=== PATIENT | female | born 1930 | race African-American/Black ===

== ENCOUNTER 2017-03-03 11:50 | Inpatient (IN) ==
[2017-03-03] MEDS ORDERED: ASPIRIN 325 MG TABLET PO STA (13:00)
--- NOTE | 2017-03-03 13:09 | EKG Report ---
Stationary ECG Study [facility] ER Test Date: 03/03/2017 12:13:41 PM Pat Name: YENNI RIGGS Department: Room: Gender: F Cook Starch: ACACIA Amos : 1930 Requested by: Bharath Garcia Order Number: [id number] Reading MD: GEMA SALINAS Intervals [place] Rate: 60 P: 175 OK: 174 QRS: 132 QRSD: 133 T: 66 QT: 471 QTc: 471 Interpretive Statements ELECTRONIC ATRIAL PACEMAKER MARKED RIGHT AXIS DEVIATION RIGHT BUNDLE BRANCH BLOCK Electronically Signed On 03-03-17 17:43:46 CDT by GEMA SALINAS [email or web address]
[2017-03-03] MEDS ORDERED: ASPIRIN 325 MG TABLET ONE (13:11)
[2017-03-03 13:17] LABS: Basophils # 0.1 10*3/uL (0.0-0.2); Basophils % 0.9 % (0.0-0.8); Eosinophils # 0.6 10*3/uL (0.0-0.87); Eosinophils % 7.1 % (0.00-10.9); Hematocrit 35.2 VOL% (35.7-47.0); Hemoglobin 11.1 GM/DL (12.0-16.0); Immature Granulocytes % 0.4 %; Immature Granulocytes Absolute 0.03 #; Lymphocytes # 1.2 10*3/uL (1.4-4.0); Lymphocytes % 14.3 % (21.3-54.2); Mean Corpuscular HGB Conc 31.5 GM/DL (32-36); Mean Corpuscular Hemoglobin 27 PG (27-34); Mean Corpuscular Volume 86.9 FL (87-102); Monocytes # 0.4 10*3/uL (0.11-0.8); Monocytes % 5.4 % (1.7-12.7); NRBC # 0.02 10*3/uL; Neutrophils # 5.8 10*3/uL (1.4-7.4); Neutrophils % 71.9 % (38.7-73.9); Platelet Count 135 T/CUMM (130-400); Red Blood Count 4.05 MC/CUMM (3.8-5.5); Red Cell Distribution Width 17.1 % (9.3-17.3)
[2017-03-03 13:22] LABS: INR 1.2; PT Patient Result 12.4 SECS; Partial Thromboplastin Time 26.6 SECS (0-40)
[2017-03-03 13:26] LABS: Albumin 3.5 G/DL (3.4-5.0); Bilirubin,Total 0.7 MG/DL (0.2-1.0); Calcium 9.2 MG/DL (8.5-10.1); Osmolality,Calculated 296.7 MOS/KG (273-304); Potassium 4.8 MMOL/L (3.5-5.1); Total Protein 7.2 G/DL (6.4-8.3)
--- NOTE | 2017-03-03 13:30 | XRay Report ---
Portable chest Date: 03/03/2017 Clinical history: Chest pain Comparison: 04/02/2014 Technique: Portable AP sitting chest Findings: The heart is minimally enlarged with stable left subclavian atrioventricular pacemaker. Reduced but recurrent diffuse parenchymal findings in the left mid to lower lung zone with small left pleural effusion. Minimal chronic scarring in the right lung. Decreased hilar density with degenerative changes. Postoperative findings in the axilla bilaterally. Impression: Possible recurrent pneumonia in the left mid to lower lung zone. It is difficult to exclude additional underlying pathology/masses with small left pleural effusion. Follow-up is recommended. Stable left subclavian atrioventricular permanent pacemaker. PROCEDURE INTERPRETED AT [facility] DEPARTMENT OF RADIOLOGY Final Report Signed by: Dr. Sarah Magallon
--- NOTE | 2017-03-03 13:39 | Emergency Department Note ---
Nini Bartlett Gwan, am scribing for, and in the presence of, Bharath Guadarrama MD 13:06 . Chiara Bartlett James D, MD, personally performed the services described in this documentation, ascribed by Bobo Terrazas in my presence, and it is both accurate and complete 338 . Arrival - Arrival Chief Complaint: Chest Pain Stated Complaint: shoulder and neck pain ED Nursing Triage Note: C/o midsternal chest pain radiating to right shoulder/ neck and SOB-onset last night. Mode of Arrival: Wheelchair Limitations: No Limitations Source: Patient, Family, Old Records Reviewed, RN Notes Reviewed - History of Present Illness HPI Narrative: Patient is a 87 y/o female, with a hx of pacemaker, who presents to the ED with a c/o midsternal chest pain and melena with an onset 3 days ago. Patient describes her pain as dull and that it radiates to right shoulder/neck. Her associated sxs have been SOB that worsens with movement and palpation. Family stated that pt was last seen in Dr. Noel office 02/25/2017 with negative results. Family continued to state that pt began to have sxs 3 days ago of "feeling sick, SOB and nausea. Family denies being on blood thinner or any fall/ trauma to her chest. Patient stated that she is not in pain now while in ED. Consistency: constant Severity: moderate Date of Last Menstrual Period: hysterectomy Allergies/Adverse Reactions: Allergies Allergy/AdvReac Type Severity Reaction Status Date / Time No Known Allergies Allergy Verified 03/03/17 12:04 Home Medications: Home Medications Medication Instructions Recorded Confirmed Type Atorvastatin Calcium 20 mg PO DAILY 03/03/17 03/03/17 History Escitalopram Oxalate 10 mg PO DAILY 03/03/17 03/03/17 History Ferrous Sulfate 325 mg PO DAILY 03/03/17 03/03/17 History Furosemide Tab [Lasix Tab] 40 mg PO BID DIURETIC 03/03/17 03/03/17 History Loratadine Tab [Claritin Tab] 10 mg PO DAILY 03/03/17 03/03/17 History Omeprazole 40 mg PO DAILY 03/03/17 03/03/17 History Sotalol HCl [Sotalol] 80 mg PO BID 03/03/17 03/03/17 History cloNIDine HCl [Clonidine HCl] 0.1 mg PO BID 03/03/17 03/03/17 History Review of System - Review of System 12 point system: reviewed and no additional remarkable complaints except as stated - Review of System Constitutional: Absent: chills, fever Eyes: Absent: discharge, pain Cardiovascular: Present: as per HPI, chest pain Gastrointestinal: Present: as per HPI, nausea, melena. Absent: abdominal pain Genitourinary female: Absent: dysuria Musculoskeletal: Absent: arm pain, back pain, leg pain Skin: Absent: rash, lesions Medical,Surgical,& Family Hx - Medical History Cardio: History of: Hypertension, Pacemaker Endocrine: History of: Dyslipidemia - Social History Smoking Status: Never smoker Frequency of Alcohol Use: None Type of Drug Use: None Exam Physical Examination: GENERAL: This is a ill-appearing black female in no apparent distress. VITAL SIGNS: HEENT: Head is normocephalic and atraumatic. Pupils are equally round and reactive to light. Extraocular movement are intact. Oropharynx is benign with dry mucous membranes. NECK: Neck is soft and supple without tenderness. There are no masses. There is no lymphadenopathy. LUNGS: Lungs are clear to auscultation bilaterally. Chest rises symmetrically. There is no chest wall tenderness. CV: Heart is regular rate and rhythm with 2-3/6 systolic injection murmurs. ABDOMEN: Abdomen is soft, non-tender to palpation. There are no abnormal masses palpated. There is no organomegaly. Bowel sounds are present and active. SKIN: Skin is warm and dry. No rash. EXTREMITIES: Patient has full range of motion without tenderness. There is no pedal edema. NEUROLOGIC: Awake, alert, and oriented x4. Cranial nerves II through XII are grossly intact. There are no motorsensory deficits. PSYCHIATRIC: Normal affect. Normal mood. Vital Signs: Vital Signs Temperature 96.9 F L 03/03/17 11:59 Pulse Rate 60 03/03/17 11:59 Respiratory Rate 18 03/03/17 13:33 Blood Pressure 157/93 03/03/17 11:59 O2 Sat by Pulse Oximetry 95 03/03/17 11:59 Results - Labs CBC & BMP: 03/03/17 12:30 03/03/17 12:30 Lab Results: I have reviewed the patients labs Labs: Laboratory Tests 03/03/17 03/03/17 03/03/17 12:30 12:30 12:30 WBC 8.0 RBC 4.05 Hgb 11.1 L Hct 35.2 L MCV 86.9 L MCHC 31.5 L Lymph % (Auto) 14.3 L Baso % (Auto) 0.9 H Lymph # (Auto) 1.2 L INR 1.2 PT Patient/Control Mix 12.4 Circ Anticoag PTT 26.6 Sodium 138 Potassium 4.8 Chloride 106 Carbon Dioxide 21 Anion Gap 15.8 H BUN 42 H Creatinine 2.90 H Glucose 294 H AST 73 H ALT 63 H Alkaline Phosphatase 118 H Globulin 3.7 H Albumin/Globulin Ratio 0.9 L - EKG EKG results: interpreted by ERMD - Impressions EKG: Electronic atrial pacemaker rate of 60, right axis deviation, right bundle branch block. - Diagnostic Findings Procedure: Chest x-ray: report reviewed by me, image reviewed by me (Possible recurrent pneumonia in the left mid to lower lung zone. it is difficult to exclude additional underlying pathology/masses with small left pleural effusion. Follow-up is recommended. Stable left subclavian atrioventricular permanent pacemaker. ) Disposition Clinical Impression: Pneumonia Case discussed with: patient Disposition: Still a Patient Condition: Stable Time of Disposition: 14:22
[2017-03-03] MEDS ORDERED: LEVOFLOXACIN INJ 500 MG in PREMIX 1 EACH IV STA (14:23)
[2017-03-03] MEDS ORDERED: LEVOFLOXACIN INJ 100 ML IV ONE (14:31)
--- NOTE | 2017-03-03 15:22 | Hospitalist History & Physical ---
Assessment and Plan - Time spent with patient Time spent with patient: Greater than 30 minutes (1) Shortness of breath Status: Acute Assessment and plan: 87-year-old -[place] female with history of CHF, pacemaker, hypertension admitted by hospitalist service with shortness of breath due to pneumonia. Her x-ray is showing a questionable mass and small pleural effusion. We will go ahead and consult pulmonary for further evaluation of this. We will also put her on antibiotics, breathing treatments, and O2.. Patient is also complaining of diarrhea with dark stools but her guaiac was negative. We will continue to monitor this. Will restart all of her home medicines for CHF and hypertension. Patient's blood sugars were noted to be almost 300 but she is on nothing for diabetes. Will put her on sliding scale insulin and check hemoglobin A1c. Patient's creatinine is 2.9 but this is her baseline. Dr. Medrano will see and examined patient and further recommendations to follow. Current Visit: Yes (2) Diarrhea Status: Acute Current Visit: Yes (3) Pneumonia Status: Acute Current Visit: Yes (4) Pleural effusion Status: Acute Current Visit: Yes (5) Chronic kidney disease Status: Acute Current Visit: Yes (6) Congestive heart failure Status: Acute Current Visit: Yes (7) Hypertension Status: Acute Current Visit: Yes (8) Diabetes Status: Acute Current Visit: Yes History of Present Illness Chief complaint: Shortness of breath History of present illness: Ms. Engel is a 87 year old female with history of hypertension, chronic kidney disease, pacemaker, and congestive heart failure presenting to the ED with a one-week history of increasing shortness of breath and diarrhea. History obtained from patient and from daughter and [id number] in the room. Patient had just had an appointment with Dr. Noel on Tuesday where he added a new medicine of sotalol to her regimen. Otherwise everything looked fine. They state she started feeling bad after that. Patient complains of cough, weakness and shortness of breath along with abdominal cramping and diarrhea with dark stools. She denies headache, dysphagia, chest pain, constipation, or lower extremity edema. Patient is afebrile and her vital signs are stable. Patient's white count is normal and her H&H is stable. She had a guaiac negative stool. Her electrolytes are okay and her creatinine is 2.9 but this is her baseline. Her blood sugars are elevated at 294 and I do not see where she is on any medicines for diabetes. Her chest x-ray shows a possible recurrent pneumonia in the left mid to lower lung zone but it is difficult to exclude pathology/mass with small left pleural effusion. Dr. Noel is her home theater expert Dr. Snyder is her batt packer. Her PCP is Dr. Chang in [place]. Patient's case was discussed with Dr. Guadarrama the ED physician and Dr. Medrano the admitting hospitalist, it was agreed patient would be admitted for further evaluation and treatment. Home Medications Medication Instructions Recorded Confirmed Type Atorvastatin Calcium 20 mg PO DAILY 03/03/17 03/03/17 History Escitalopram Oxalate 10 mg PO DAILY 03/03/17 03/03/17 History Ferrous Sulfate 325 mg PO DAILY 03/03/17 03/03/17 History Furosemide Tab [Lasix Tab] 40 mg PO BID DIURETIC 03/03/17 03/03/17 History Loratadine Tab [Claritin Tab] 10 mg PO DAILY 03/03/17 03/03/17 History Omeprazole 40 mg PO DAILY 03/03/17 03/03/17 History Sotalol HCl [Sotalol] 80 mg PO BID 03/03/17 03/03/17 History cloNIDine HCl [Clonidine HCl] 0.1 mg PO BID 03/03/17 03/03/17 History Allergies Allergy/AdvReac Type Severity Reaction Status Date / Time No Known Allergies Allergy Verified 03/03/17 12:04 Medical,Surgical,& Family Hx - Medical History Cardio: History of: Hypertension, Pacemaker Endocrine: History of: Dyslipidemia - Surgical History Cardiac Surgeries: Sugical HX of: Vascular Access Devices Reproductive Surgeries: Surgical HX of;: Hysterectomy - Family History Family History: Reports;: Family Heart Disease - Social History Smoking Status: Never smoker Frequency of Alcohol Use: None Type of Drug Use: None Marital Status: Lives With:: Children Functional capacity: uses cane/walker Review of systems: A complete 10 system review of systems was obtained and pertinent positives and negatives per HPI Exam - Constitutional Exam: Constitutional System: No distress. No tremulousness. Head: Normocephalic, atraumatic. Ears, Nose and Throat System: No evidence of Otitis or Mastoiditis. No epistaxis or discharge Eyes System: Pupils equal, round, and reactive. Extraocular muscles intact. Neck: Supple, without adenopathy, No jugular venous distention. No thyromegaly, neck mass, or prior surgery apparent. Respiratory System: Chest decreased breath sounds on the left to auscultation. Cardiovascular System: Heart with regular rate and rhythm. 4/6 murmur. GI System: Abdomen soft, nontender. Normo active bowel sounds present. Musculoskeletal System: limbs with no pedal edema. Diminished distal pulses. Neurological System: No discernable sensory deficit. No aphasia Psychiatric System: Conversation is rational Results - Labs CBC & BMP: 03/03/17 12:30 03/03/17 12:30 Lab Results: I have reviewed the past 24 hour labs - Impressions Right bundle branch block, pacemaker - Diagnostic Findings Procedure: Chest x-ray: report reviewed by me (Possible recurrent pneumonia in the left mid to lower lung zone. It is difficult to exclude additional underlying pathology/masses with small left pleural effusion)
[2017-03-03] MEDS ORDERED: guaiFENesin/DM ER 600-30 MG TABLET PO PRN (15:30)
[2017-03-03] MEDS ORDERED: MORPHINE 2 MG/1 ML SYRINGE IV PRN (15:30)
[2017-03-03] MEDS ORDERED: PROMETHAZINE 25 MG TABLET PO PRN (15:30)
[2017-03-03] MEDS ORDERED: ACETAMINOPHEN 325 MG TABLET PO PRN (15:30)
[2017-03-03] MEDS ORDERED: DOCUSATE SODIUM 100 MG CAPSULE PO PRN (15:30)
[2017-03-03] MEDS ORDERED: ONDANSETRON 4 MG/2 ML VIAL IV PRN (15:30)
[2017-03-03] MEDS ORDERED: diphenhydrAMINE CAP 25 MG CAPSULE PO PRN (15:30)
[2017-03-03] MEDS ORDERED: GLUCAGON 1 MG VIAL IM PRN (15:33)
[2017-03-03] MEDS ORDERED: DEXTROSE 50% 25 GM/50 ML VIAL IV PRN (15:33)
[2017-03-03] MEDS ORDERED: ALBUTEROL 2.5 MG/3 ML NEB RESP TX PRN (15:34)
--- NOTE | 2017-03-03 16:13 | EKG Report ---
Stationary ECG Study [facility] Test Date: 03/03/2017 4:11:21 PM Pat Name: YENNI RIGGS Department: Room: 222 Gender: F Computer Hardware Engineer: : 1930 Requested by: Bharath Garcia Order Number: [id number] Reading MD: GEMA SALINAS Intervals [place] Rate: 59 P: 109 IN: 176 QRS: 135 QRSD: 144 T: 67 QT: 464 QTc: 464 Interpretive Statements ELECTRONIC ATRIAL PACEMAKER MARKED RIGHT AXIS DEVIATION RIGHT BUNDLE BRANCH BLOCK Electronically Signed On 03-03-17 17:50:03 CDT by GEMA SALINAS [id number]
[2017-03-03] MEDS: LORATADINE 10 MG TABLET PO SCH (17:20)
[2017-03-03] MEDS: SODIUM CHLORIDE 0.9% 1,000 ML IV SCH (17:20)
[2017-03-03] MEDS: PANTOPRAZOLE 40 MG TABLET PO SCH (17:20)
[2017-03-03] MEDS: ESCITALOPRAM 10 MG TABLET PO SCH (17:20)
[2017-03-03] MEDS: FERROUS SULFATE 325 MG TABLET PO SCH (17:20)
[2017-03-03] MEDS: FUROSEMIDE 40 MG TABLET PO SCH (17:20)
[2017-03-03] MEDS: ENOXAPARIN 30 MG/0.3 ML SYRINGE SUBCUT SCH (17:20)
[2017-03-03] MEDS: ATORVASTATIN 20 MG TABLET PO SCH (17:21)
[2017-03-03] MEDS: cefTRIAXone 1,000 MG in SODIUM CHLORIDE 0.9% 100 ML IV SCH (17:21)
[2017-03-03] MEDS: INSULIN REGULAR 100 UNIT/ML SUBCUT SCH (17:23)
--- NOTE | 2017-03-03 17:53 | Pulmonology Consult Note ---
History of Present Illness Chief complaint: Abnormal chest x-ray. Diarrhea History of present illness: Ms. Engel is a 87 year old black female whom I been asked see in pulmonary consultation for evaluation and treatment of abnormal chest x-ray. This patient is seen along with her daughter and Luis Antonio Chiu nurse practitioner. She has had a cough for 3 or 4 weeks and several weeks ago this was productive of a lot of discolored sputum. Now the cough is better. Patient 's had some shortness of breath. Her biggest complaint has been diarrhea. She has had some vague nausea but no vomiting. No one is seen any blood in her stools. Patient denies any chest pain. She has seen Dr. Oleksandr espinoza recently in cardiology consultation and it sounds like she may have had an echocardiogram. In March 2014 while the patient was in the hospital she had an echocardiogram and was said to have pulmonary hypertension. That is mentioned in the discharge summary. That record is not available on our electronic medical records. At that time she had moderate to severe mitral regurgitation and tricuspid regurgitation with elevated pulmonary artery pressures and she was in congestive heart failure. I have reviewed those x-rays. There were infiltrative changes in the mid and upper lung correia bilaterally. This could easily be atypical pulmonary edema. This admission the patient has a natruretic peptide of 2130. I am going to ask Dr. espinoza to help with the patient's evaluation and if he did not do an echocardiogram we probably should repeat it. Patient does have some very mild orthopnea. The remainder of the review of systems is negative. Allergies. None. Home medicines. See below Past history. Congestive heart failure. Mitral regurgitation which may have been the cause of pulmonary hypertension. Gastroesophageal reflux. Iron deficiency anemia. Hyperlipidemia. High blood pressure. Patient had breast cancer in the left breast in 1986. This was an adenocarcinoma which was stage II and was ER/UT negative. She had a left modified radical mastectomy and she was treated with adjuvant CMF, she received 9 courses the last one was 1987. 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 She underwent a mastectomy and was treated with adjuvant hormonal therapy for about 2 years and then it was stopped. Degenerative arthritis her breast cancer was treated by Dr. Gerardo Johns patient has a history of chronic renal failure which is followed and treated by Dr. Nicholas Osorio. History of intermittent lower extremity arterial claudication. 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 Family history. Her sister had Alzheimer's disease. Sister and a daughter had breast cancer. Her mother had diabetes mellitus and heart disease and at age 88 she had a CVA. Her father had a CVA at age 90. Mother had high blood pressure. Mother and father both have osteoarthritis mother father brother had strokes. Social history. Has been a smoker. Does not use alcohol. Chest x-ray. 03/03/2017. Heart size is normal. Right lung is clear. There is a masslike effect in the left upper lung field. This is a portable film only in this area is partially hidden by cardiac pacer. Inferior to the patient has an area that looks like pleural effusion and interstitial edema. This is compared to a film done 03/30/2014 when the patient had congestive heart failure. The left side of her chest x-ray looked almost exactly the same but there was atypical interstitial edema and pleural effusion in the right upper lung. A chest x-ray done 05/12/2011 showed no abnormalities. Review of Dr. Johns's notes showed that he read a chest x-ray in his office dated 2014 and this showed no mass-effect infiltrates or pulmonary edema. I think we have to assume that this is an infiltrate such as pneumonia but watch for atypical pulmonary edema. Lab. White count is 8000 with 72 segs and 14 lymphs. H&H 11.1/35.2 with decreased red blood cell indices and elevated red blood cell distribution with. Platelets are 135,000. Natruretic peptide is elevated at 2130. Alkaline phosphatase is minimally elevated 118. There is mild elevation of AST and ALT. Total bilirubin is 0.7. Protein albumin and globulins are normal. Electrolytes are normal. Creatinine is 2.9 with a BUN of 42. Glucoses are 294. Multiple old records have been reviewed. These include records from previous hospitalizations were available, from Dr. Gerardo Johns and from Dr. Najera. Physical exam. Vital signs. See below. Psychiatric. Oriented cooperative and has a sense of humor. Neurologic. Cranial nerves are intact. Patient moves all 4 extremities. She needs help to move around. Face. Symmetrical. Lips and tongue are normal. Neck. Symmetrical kyphotic. No masses. Thyroid was not palpated Lymphatics. No submandibular cervical supraclavicular adenopathy. Chest. Kyphotic. Wheeze free. Slight cough with forced expiration Heart. I cannot hear a definite murmur or gallop Breasts. Deferred Abdomen. Nontender. Bowel sounds are present. No organs were palpated. Lower extremities. Mild chronic venous stasis. Slight tenderness of both catheters with posterior pressure. Arterial exam. Carotid upstrokes are decreased. Upper extremity pulses are faintly palpable. Lower extremity pulses are nonpalpable. Venous exam. Vein to the neck and upper extremities are normal. There is mild chronic venous stasis of the lower extremities. The remainder the physical exam is noncontributory. Impression. 1. Probable left upper lung pneumonia. Watch for atypical pulmonary edema. See above x-ray interpretation. 2. History of heart disease and past history of congestive heart failure. 3. History of at least moderate mitral regurgitation with pulmonary hypertension and tricuspid regurgitation. 4. Chronic renal failure 5. Possible iron deficiency 6. High blood pressure 7. Hyperlipidemia 8. History of gastroesophageal reflux disease 9. Diabetes mellitus. Hemoglobin A1c is elevated at 7.9. Note the patient has taken no medicines for diabetes. 10. See past history Plan. 1. Agree with protocol antibiotics 2. Sputum for Gram stain culture and sensitivity 3. Cold agglutinins 4. Legionella titer 5. Inhalation therapy with DuoNeb's 4 times daily and as needed 6. Doppler venograms of lower extremities 7. Iron total iron-binding capacity 8. Follow-up chest x-ray, BMP and BNP. Note the patient was on Lasix at home. This is being held at the present time and she is receiving IV fluids. 9. Consult Dr. Oleksandr espinoza. He is done a recent cardiac evaluation and perhaps he can help us with the status of her mitral regurgitation, pulmonary hypertension, cardiac output. 10. See orders Home Medications Medication Instructions Recorded Confirmed Type Atorvastatin Calcium 20 mg PO DAILY 03/03/17 03/03/17 History Escitalopram Oxalate 10 mg PO DAILY 03/03/17 03/03/17 History Ferrous Sulfate 325 mg PO DAILY 03/03/17 03/03/17 History Furosemide Tab [Lasix Tab] 40 mg PO BID DIURETIC 03/03/17 03/03/17 History Loratadine Tab [Claritin Tab] 10 mg PO DAILY 03/03/17 03/03/17 History Omeprazole 40 mg PO DAILY 03/03/17 03/03/17 History Sotalol HCl [Sotalol] 80 mg PO BID 03/03/17 03/03/17 History cloNIDine HCl [Clonidine HCl] 0.1 mg PO BID 03/03/17 03/03/17 History Allergies Allergy/AdvReac Type Severity Reaction Status Date / Time No Known Allergies Allergy Verified 03/03/17 12:04 [facility] H&P - Constitutional Vitals: Period Temp Pulse Resp BP Sys/Dickinson Pulse Ox Last 24 Hr 97 F 60-60 16 159-165/77-86 94 Medical,Surgical,& Family Hx - Medical History Cardio: History of: Hypertension, Pacemaker Endocrine: History of: Diabetes Mellitus (NIDDM), Dyslipidemia - Surgical History Cardiac Surgeries: Sugical HX of: Vascular Access Devices Abdominal Surgeries: Surgical HX of: Appendectomy Reproductive Surgeries: Surgical HX of;: Breast Surgery, Hysterectomy - Family History Family History: Reports;: Family Heart Disease - Social History Smoking Status: Never smoker Frequency of Alcohol Use: None Type of Drug Use: None Results - Labs CBC & BMP: 03/03/17 12:30 03/03/17 12:30
[2017-03-03] MEDS ORDERED: ALBUTEROL/IPRATROPIUM 3 ML NEB RESP TX PRN (18:09)
[2017-03-03 18:59] LABS: Thyroid Stimulating Hormone 2.55 uIU/ml (0.358-3.74)
[2017-03-03] MEDS: ALBUTEROL/IPRATROPIUM 3 ML NEB RESP TX SCH (19:20)
[2017-03-03] MEDS: cloNIDine 0.1 MG TABLET PO SCH (21:29)
[2017-03-03] MEDS: SOTALOL 80 MG TABLET PO SCH (21:30)
[2017-03-04] MEDS: ALBUTEROL/IPRATROPIUM 3 ML NEB RESP TX SCH ×4 (00:36→19:30)
[2017-03-04 04:48] LABS: Basophils # 0.1 10*3/uL (0.0-0.2); Basophils % 1.2 % (0.0-0.8); Eosinophils # 0.6 10*3/uL (0.0-0.87); Eosinophils % 8.6 % (0.00-10.9); Hematocrit 31.9 VOL% (35.7-47.0); Immature Granulocytes % 0.3 %; Immature Granulocytes Absolute 0.02 #; Lymphocytes % 14.1 % (21.3-54.2); Mean Corpuscular HGB Conc 31.3 GM/DL (32-36); Mean Corpuscular Hemoglobin 27 PG (27-34); Mean Corpuscular Volume 87.2 FL (87-102); Mean Platelet Volume 13.1 FL (9.6-12.0); Monocytes # 0.4 10*3/uL (0.11-0.8); Monocytes % 6.3 % (1.7-12.7); NRBC # 0.03 10*3/uL; Neutrophils # 4.8 10*3/uL (1.4-7.4); Neutrophils % 69.5 % (38.7-73.9); Platelet Count 115 T/CUMM (130-400); Red Blood Count 3.66 MC/CUMM (3.8-5.5); White Blood Count 6.9 T/CUMM (4-12)
[2017-03-04 05:14] LABS: Platelet Estimate Normal
[2017-03-04 05:15] LABS: Burr Cells Few; Helmet Cells Few; Ovalocytes 2+; Schistocytes Few
[2017-03-04 05:29] LABS: % Iron Saturation 36.9 % (18-50)
[2017-03-04 05:34] LABS: Albumin 3.1 G/DL (3.4-5.0); Bilirubin,Total 0.7 MG/DL (0.2-1.0); Calcium 9.6 MG/DL (8.5-10.1); Magnesium 1.5 MG/DL (1.8-2.4); Potassium 4.7 MMOL/L (3.5-5.1); Total Protein 6.1 G/DL (6.4-8.3)
[2017-03-04] MEDS: SODIUM CHLORIDE 0.9% 1,000 ML IV SCH (06:31)
--- NOTE | 2017-03-04 07:41 | XRay Report ---
XR chest 2V Date: 03/04/2017 4:00 AM History: Shortness of breath, pneumonia, possible atypical CHF Comparison: 03/03/2017 Technique: PA and lateral chest Findings: Persistent cardiomegaly with left subclavian atrial ventricular permanent pacemaker. Reduction in the parenchymal findings in the left mid to lower lung zone. Persistent irregular density in the left midlung zone with smaller left pleural effusion. Postoperative findings in the axilla bilaterally. Impression: Persistent cardiomegaly with a left subclavian atrioventricular pacemaker. Minimally reduced parenchymal findings in the left mid-lower lung same with minimally smaller left pleural effusion. These findings could be related to pneumonia or atypical CHF. It is difficult to exclude underlying mass and follow-up chest x-ray is recommended. PROCEDURE INTERPRETED AT [facility] [place] DEPARTMENT OF RADIOLOGY Final Report Signed by: Dr. Sarah Magallon
--- NOTE | 2017-03-04 07:41 | Ultrasound Report ---
Exam: Bilateral lower extremity venous Doppler ultrasound Comparison: None Clinical history: Bilateral calf pain Technique: Duplex scan of the lower extremity veins using B-mode/grayscale scaled imaging and Doppler spectral analysis and color flow. Findings: Major venous structures of the lower extremities demonstrate a normal course and caliber. Normal color-flow study and spectral analysis. There is normal compression and augmentation of bilateral common femoral, superficial femoral and popliteal veins. The proximal bilateral greater saphenous veins appear to be patent. Impression: No evidence to suggest deep venous thrombosis within either lower extremity. Ultrasound images were captured and stored. PROCEDURE INTERPRETED AT [facility] DEPARTMENT OF RADIOLOGY Final Report Signed by: Dr. Sarah Magallon
--- NOTE | 2017-03-04 08:11 | Physician Query Form ---
CLICK EDIT DOCUMENT TO SELECT QUERY ANSWER --> OK --> SIGN Isha Barnett RN, CCDS Certified Clinical Lay Out Carpenter W) [phone] (f) [phone] [email or web address] PROVIDERS: Make your selection(s) from the choices in EACH section by typing an "x" and enter comments in the comment section. Please use your independent medical judgment in providing your response. This request does not imply that any particular answer is desired or expected. CLINICAL INDICATORS: (Providers should not edit this section) The medical record indicates that the patient was admitted with pneumonia, CHF, BNP of 2130# and the patient was given Lasix (PO). Please provide further specificity regarding CHF. ACUITY: ( ) Acute ( x) Chronic ( ) Acute on Chronic ( ) Clinically unable to determine TYPE: ( ) Systolic (HFrEF - heart failure with reduced systolic function/EF) ( ) Diastolic (HFpEF - heart failure with preserved systolic function/EF) ( ) Combined Systolic/Diastolic ( ) Other, please specify: ( x) Clinically unable to determine ( ) The patient does NOT have CHF COMMENTS: PLEASE ALSO DOCUMENT RESPONSE IN PROGRESS NOTES AND/OR DISCHARGE SUMMARY Use of terms such as suspected, likely, or probable (associated with a specific diagnosis that is being evaluated, monitored, or treated as if it exists) are acceptable and can be restated in the discharge summary if not ruled out. MTDD
--- NOTE | 2017-03-04 08:13 | Physician Query Form ---
CLICK EDIT DOCUMENT TO SELECT QUERY ANSWER --> OK --> SIGN Isha Barnett RN, CCDS Certified Clinical Plumbing Designer W) [phone] (f) [phone] [email or web address] PROVIDERS: Make your selection(s) from the choices in EACH section by typing an "x" and enter comments in the comment section. Please use your independent medical judgment in providing your response. This request does not imply that any particular answer is desired or expected. CLINICAL INDICATORS: (Providers should not edit this section) The medical record indicates that the patient was admitted with CHF, history CKD , GFR of 16# and the creatinine 2.90#. Clarify which of the following most accurately represents the patient's renal status: Chronic Kidney Disease Stages Source: National Kidney Disease Foundation ( ) Stage I (eGFR > or = 90) ( ) Stage II (eGFR 60 - 89) ( ) Stage III (eGFR 30 - 59) (x ) Stage IV (eGFR 15 - 29) ( ) Stage V (eGFR < 15 or dialysis) COMMENTS: PLEASE ALSO DOCUMENT RESPONSE IN PROGRESS NOTES AND/OR DISCHARGE SUMMARY Use of terms such as suspected, likely, or probable (associated with a specific diagnosis that is being evaluated, monitored, or treated as if it exists) are acceptable and can be restated in the discharge summary if not ruled out. MTDD
[2017-03-04] MEDS: LORATADINE 10 MG TABLET PO SCH (08:36)
[2017-03-04] MEDS: ATORVASTATIN 20 MG TABLET PO SCH (08:36)
[2017-03-04] MEDS: FUROSEMIDE 40 MG TABLET PO SCH ×2 (08:43→16:46)
[2017-03-04] MEDS: SOTALOL 80 MG TABLET PO SCH ×2 (08:43→20:24)
[2017-03-04] MEDS: FERROUS SULFATE 325 MG TABLET PO SCH (08:43)
[2017-03-04] MEDS: PANTOPRAZOLE 40 MG TABLET PO SCH (08:44)
[2017-03-04] MEDS: cloNIDine 0.1 MG TABLET PO SCH ×2 (08:44→20:24)
[2017-03-04] MEDS: INSULIN REGULAR 100 UNIT/ML SUBCUT SCH ×2 (08:44→16:47)
[2017-03-04] MEDS: ESCITALOPRAM 10 MG TABLET PO SCH (08:44)
--- NOTE | 2017-03-04 10:34 | Pulmonology Progress Note ---
Pulmonary - PN: Subj Interval history: This is a 87-year-old female patient whom I saw in pulmonary consultation 2016. My impressions were. 1. Probable left upper lung pneumonia. Watch for atypical pulmonary edema. See above x-ray interpretation. 2. History of heart disease and past history of congestive heart failure. 3. History of at least moderate mitral regurgitation with pulmonary hypertension and tricuspid regurgitation. 4. Chronic renal failure 5. Possible iron deficiency 6. High blood pressure 7. Hyperlipidemia 8. History of gastroesophageal reflux disease 9. Diabetes mellitus. Hemoglobin A1c is elevated at 7.9. Note the patient has taken no medicines for diabetes. 10. See past history 03/04/2017. Today's chest x-ray shows cardiomegaly pulmonary arteries are top normal right lung is clear. There is a dense mass or infiltrate in the anterior segment of the left upper lung. This is overlaid by a cardiac pacer. There is a small left-sided pleural effusion. I think we should treat this as if it is pneumonia for the present time. If this does not resolve this can be evaluated with fiberoptic bronchoscopy. I have ordered a new chest x-ray for Tuesday. I have discussed this possibility with her daughter. There are no results from microbiology. White blood cell count is 6900 with 69.5 segs and 14 lymphs. Electrolytes are normal. Creatinine is dropped from 2.90-2.50. Natruretic peptide remains elevated 2037. Thyroid function tests are normal. Cardiology consultation from Dr. espinoza is pending. I assumed that he recently did have an echocardiogram in his office on the patient. If not, we should order one. This patient has a history of at least moderate mitral regurgitation with pulmonary hypertension and tricuspid regurgitation. She has a history of heart disease and has had congestive heart failure in the past. In the past when diagnosed with congestive heart failure the pulmonary edema was atypical on her chest x-rays. Physical exam. Vital signs. See below Psychiatric. Oriented 3. Cooperative. Neurologic. Cranial nerves are intact. Long track motor functions intact. Patient has generalized weakness. Face. Symmetrical. Lips and tongue are normal. Edentulous. Neck. Symmetrical. No meningismus. Lymphatics. No submandibular cervical supraclavicular or epitrochlear adenopathy. Chest. Clear. Heart. Lateral PMI Abdomen. Positive bowel sounds Extremities. Nothing to suggest deep venous thrombophlebitis The remainder the physical exam is noncontributory. Plan. 1. Agree with protocol antibiotics 2. Sputum for Gram stain culture and sensitivity 3. Cold agglutinins 4. Legionella titer 5. Inhalation therapy with DuoNeb's 4 times daily and as needed 6. Doppler venograms of lower extremities. No evidence of deep venous trauma from 7. Iron total iron-binding capacity. Iron saturation is normal. 8. Follow-up chest x-ray, BMP and BNP. Note the patient was on Lasix at home. This is being held at the present time and she is receiving IV fluids. 9. Consult Dr. Oleksandr espinoza. He is done a recent cardiac evaluation and perhaps he can help us with the status of her mitral regurgitation, pulmonary hypertension, cardiac output. Note marked elevation of BNP 10. 03/04/2017. See today's note above. Chest x-ray on Tuesday. Treat as pneumonia and consider the possibility of a mass. Exam (Progress Note) - Constitutional Vitals: Period Temp Pulse Resp BP Sys/Dickinson Pulse Ox Last 24 Hr 96.6 F-97.3 F 58-62 16-21 124-165/64-86 94-100 Results - Labs CBC & BMP: 03/04/17 04:13 03/04/17 04:13
--- NOTE | 2017-03-04 10:38 | Cardiology Consult Note ---
History of Present Illness - Data of Consult Patient: known to practice within the last 3 years - Consult Narrative History of present illness: Cardiology consult 87-year-old woman presents with her daughter Iwona. She has had a nonproductive cough for at least 2 weeks denies fever or night sweats. Progressively short of breath and came to the ER for evaluation. Chest x-ray shows cardiomegaly and a small left effusion and infiltrate in the left midlung field. The BNP level is elevated at 2130. White count is 6.9. I believe this patient has pneumonia and superimposed CHF. Recent echo Doppler done December 06, 2016 showed an ejection fraction of 60% with grade 2 diastolic dysfunction and concentric LVH. The left atrium is severely dilated and there is moderate to severe 3+ mitral regurgitation. The right ventricle is dilated. There is severe tricuspid regurgitation. Calculated PAP was 80 mmHg. Carotid duplex study showed less than 40% bilateral ICA disease. The patient has sick sinus syndrome and status post dual-chamber pacemaker. She has a history of Paroxysmal atrial fibrillation and is on sotalol 80 mg twice daily. Her telemetry shows atrial pacing and her EKG shows right bundle branch block and left axis deviation which is unchanged from prior tracings. Patient is unsteady on her feet and holds onto her children at all times for gait support or uses a cane. She tires very easily. No history of stroke. The patient is a diabetic and uses a insulin pen. She cannot recall the name of the medication. She does have chronic arthritic complaints in her neck back and hands. She is a lifetime non-smoker and nondrinker. She does take atorvastatin for hyperlipidemia. She is status post Medtronic dual-chamber pacemaker 07/05/2010. She had a normal Lexiscan cardiac stress test March 05, 2010 with EF 62%. Lab data today White count 6.9 hemoglobin 10.0 hematocrit 31.9 MCV 87 Sodium 143 potassium 4.7 chloride 109 CO2 21 BUN 40 creatinine 2.50 Hemoglobin A1c of 7.9 glucose 160 BNP 2130 Blood pressure 148/80 pulse is 86 and regular aspirations 22 O2 sat 100% on 2 L Bilateral arcus. Nearly edentulous. Faint carotid bruit. Decreased breath sounds few rhonchi in the bases. Regular rhythm with 2/6 systolic murmur that radiates out to the apex. Abdomen obese soft benign. Femoral pulses 2+. Distal pulses are 1+. No leg edema Impression Left mid lung pneumonia Superimposed CHF Echo Doppler December 06, 2016 showed ejection fraction of 60% with grade 2 diastolic dysfunction with LVH. The left atrium is severely dilated there is moderate to severe 3+ MR and severe TR, PA pressure 80 mmHg Lifetime non-smoker Diabetic Chronic anemia Chronic renal failure. GE reflux Unsteady gait Chronic dyspnea Status post Medtronic dual-chamber pacemaker March 04, 2010 for sick sinus syndrome and paroxysmal atrial fib Atrial fib well-controlled on sotalol 80 mg twice daily Normal Lexiscan cardiac stress test March 05, 2010 EF 62% Plan IV antibiotics Nebs Lasix BMP in a.m. Discussed with daughter Iwona CC: Marcia Hernandez MD - Home Medications and Allergies Home Medications: Home Medications Medication Instructions Recorded Confirmed Type Atorvastatin Calcium 20 mg PO DAILY 03/03/17 03/03/17 History Escitalopram Oxalate 10 mg PO DAILY 03/03/17 03/03/17 History Ferrous Sulfate 325 mg PO DAILY 03/03/17 03/03/17 History Furosemide Tab [Lasix Tab] 40 mg PO BID DIURETIC 03/03/17 03/03/17 History Loratadine Tab [Claritin Tab] 10 mg PO DAILY 03/03/17 03/03/17 History Omeprazole 40 mg PO DAILY 03/03/17 03/03/17 History Sotalol HCl [Sotalol] 80 mg PO BID 03/03/17 03/03/17 History cloNIDine HCl [Clonidine HCl] 0.1 mg PO BID 03/03/17 03/03/17 History Allergies/Adverse Reactions: Allergies Allergy/AdvReac Type Severity Reaction Status Date / Time No Known Allergies Allergy Verified 03/03/17 12:04 Medical,Surgical,& Family Hx - Medical History Cardio: History of: Hypertension, Pacemaker Endocrine: History of: Diabetes Mellitus (NIDDM), Dyslipidemia - Surgical History Cardiac Surgeries: Sugical HX of: Vascular Access Devices Abdominal Surgeries: Surgical HX of: Appendectomy Reproductive Surgeries: Surgical HX of;: Breast Surgery, Hysterectomy - Family History Family History: Reports;: Family Heart Disease - Social History Smoking Status: Never smoker Frequency of Alcohol Use: None Type of Drug Use: None Physical Examination Vital Signs Temp Pulse Resp BP Pulse Ox 96.9 F L 60 20 157/93 95 03/03/17 11:59 03/03/17 11:59 03/03/17 11:59 03/03/17 11:59 03/03/17 11:59 Result/EKG - Labs CBC & BMP: 03/04/17 04:13 03/04/17 04:13 Labs: Laboratory Results - last 24 hr 03/03/17 03/03/17 03/03/17 15:47 15:49 15:56 WBC RBC Hgb Hct MCV MCH MCHC RDW Plt Count MPV Neut % (Auto) Lymph % (Auto) [place] % (Auto) Eos % (Auto) Baso % (Auto) Neut # (Auto) Lymph # (Auto) [place] # (Auto) Eos # (Auto) Baso # (Auto) Immature Gran % Nucleated RBC % Immature Gran # Nucleated RBCs # Platelet Estimate Anisocytosis Ovalocytes Helmet Cells [place] Cells Schistocytes Sodium Potassium Chloride Carbon Dioxide Anion Gap BUN Creatinine GFR Calculation BUN/Creatinine Ratio Glucose POC Glucose 218 H Calculated Osmolality Calcium Magnesium Iron TIBC % Saturation Total Bilirubin AST ALT Alkaline Phosphatase Troponin I 0.036 B-Natriuretic Peptide Total Protein Albumin Globulin Albumin/Globulin Ratio Free T4 1.00 TSH 3rd Generation 2.550 Cold Agglutinin Screen 03/03/17 03/03/17 03/04/17 18:40 18:41 04:13 WBC 6.9 RBC 3.66 L Hgb 10.0 L Hct 31.9 L MCV 87.2 MCH 27 MCHC 31.3 L RDW 17.0 Plt Count 115 L MPV 13.1 H Neut % (Auto) 69.5 Lymph % (Auto) 14.1 L [place] % (Auto) 6.3 Eos % (Auto) 8.6 Baso % (Auto) 1.2 H Neut # (Auto) 4.8 Lymph # (Auto) 1.0 L [place] # (Auto) 0.4 Eos # (Auto) 0.6 Baso # (Auto) 0.1 Immature Gran % 0.3 Nucleated RBC % 0.4 Immature Gran # 0.02 Nucleated RBCs # 0.03 Platelet Estimate Normal Anisocytosis Ovalocytes 2+ Helmet Cells Few Christy Cells Few Schistocytes Few Sodium Potassium Chloride Carbon Dioxide Anion Gap BUN Creatinine GFR Calculation BUN/Creatinine Ratio Glucose POC Glucose Calculated Osmolality Calcium Magnesium Iron TIBC % Saturation Total Bilirubin AST ALT Alkaline Phosphatase Troponin I 0.037 B-Natriuretic Peptide Total Protein Albumin Globulin Albumin/Globulin Ratio Free T4 TSH 3rd Generation Cold Agglutinin Screen Negative 03/04/17 03/04/1717 04:13 04:13 04:13 WBC RBC Hgb Hct MCV MCH MCHC RDW Plt Count MPV Neut % (Auto) Lymph % (Auto) [place] % (Auto) Eos % (Auto) Baso % (Auto) Neut # (Auto) Lymph # (Auto) [place] # (Auto) Eos # (Auto) Baso # (Auto) Immature Gran % Nucleated RBC % Immature Gran # Nucleated RBCs # Platelet Estimate Anisocytosis Ovalocytes Helmet Cells [place] Cells Schistocytes Sodium 143 Potassium 4.7 Chloride 109 H Carbon Dioxide 21 Anion Gap 17.7 H BUN 40 H Creatinine 2.50 H GFR Calculation 19 BUN/Creatinine Ratio 16.00 Glucose 139 H POC Glucose Calculated Osmolality 296.0 Calcium 9.6 Magnesium 1.5 L Iron 66 TIBC 179 L % Saturation 36.9 Total Bilirubin 0.70 AST 20 ALT 39 Alkaline Phosphatase 81 Troponin I B-Natriuretic Peptide 2038 H Total Protein 6.1 L Albumin 3.1 L Globulin 3.0 Albumin/Globulin Ratio 1.0 L Free T4 TSH 3rd Generation Cold Agglutinin Screen 03/04/17 08:22 WBC RBC Hgb Hct MCV MCH MCHC RDW Plt Count MPV Neut % (Auto) Lymph % (Auto) [place] % (Auto) Eos % (Auto) Baso % (Auto) Neut # (Auto) Lymph # (Auto) [place] # (Auto) Eos # (Auto) Baso # (Auto) Immature Gran % Nucleated RBC % Immature Gran # Nucleated RBCs # Platelet Estimate Anisocytosis Ovalocytes Helmet Cells [place] Cells Schistocytes Sodium Potassium Chloride Carbon Dioxide Anion Gap BUN Creatinine GFR Calculation BUN/Creatinine Ratio Glucose POC Glucose 160 H Calculated Osmolality Calcium Magnesium Iron TIBC % Saturation Total Bilirubin AST ALT Alkaline Phosphatase Troponin I B-Natriuretic Peptide Total Protein Albumin Globulin Albumin/Globulin Ratio Free T4 TSH 3rd Generation Cold Agglutinin Screen
--- NOTE | 2017-03-04 10:46 | Hospitalist Progress Note ---
Assessment and Plan - Time spent with patient Time spent with patient: Greater than 30 minutes (1) Pneumonia Status: Acute Assessment and plan: Continue current management. Current Visit: Yes (2) Chronic kidney disease Status: Acute Assessment and plan: Stable. Current Visit: Yes (3) Congestive heart failure Status: Acute Assessment and plan: BNP is higher than previous levels. Clinically stable, euvolemic, no echo on record. Continue meds. Current Visit: Yes (4) Diabetes Status: Acute Assessment and plan: SSI and accuchecks. Hga1c is 7.9 which is decent control given her age. Continue current management. Current Visit: Yes (5) Hypertension Status: Acute Assessment and plan: Continue current management. Current Visit: Yes (6) Hypomagnesemia Status: Acute Assessment and plan: Replenish. Current Visit: Yes Hospitalist: Subjective Interval history: Patient states she is breathing better this morning. Exam - Constitutional Vitals: Period Temp Pulse Resp BP Sys/Dickinson Pulse Ox Last 24 Hr 96.6 F-97.3 F 58-62 16-21 124-165/64-86 94-100 General appearance: no acute distress - Head Head exam: Present: normocephalic, atraumatic - Eye Eye exam: Present: EOMI Pupils: Present: SVITLANA - ENT ENT exam: Present: normal exam - Neck Neck exam: Present: normal inspection - Respiratory Respiratory exam: Present: clear to auscultation bilaterally. Absent: rhonchi, wheezes - Cardiovascular Cardiovascular exam: Present: regular rate and rhythm, systolic murmur. Absent : gallop, rubs - GI/Abdominal GI/Abdominal exam: Present: normal bowel sounds, soft. Absent: distended, firm , guarding, tenderness, rebound - Extremities Exam Extremities exam: Present: normal inspection. Absent: calf tenderness, edema Results - Labs CBC & BMP: 03/04/17 04:13 03/04/17 04:13 Lab Results: I have reviewed the past 24 hour labs
[2017-03-04] MEDS ORDERED: MAGNESIUM SULF RIDER 4 GM in PREMIX 1 EACH IV ONE (11:00)
[2017-03-04 14:45] LABS: Apearance,Urine CLEAR (Clear); Bacteria,Urine Occasional /HPF (Few); Bilirubin,Urine Negative (Negative); Blood, Urine Negative (Negative); Glucose,Urine (UA) Negative (Negative); Hyaline Casts,Urine 1 /LPF (0-3); Ketones,Urine Negative (Negative); Nitrite,Urine Negative (Negative); Protein,Urine Negative; RBC,Urine 2 /HPF (0-4); Squamous Epithelial Cell,Urine Occasional /HPF (0-10); Urine Color Yellow (Yellow); Urine Specific Gravity 1.006 (1.001-1.035); Urine Urobilinogen < 2.0 EU/DL (0.2-1.0); WBC,Urine 24 /HPF (0-6)
[2017-03-04] MEDS: ENOXAPARIN 30 MG/0.3 ML SYRINGE SUBCUT SCH (20:23)
[2017-03-04] MEDS: cefTRIAXone 1,000 MG in SODIUM CHLORIDE 0.9% 100 ML IV SCH (21:43)
[2017-03-05] MEDS: ALBUTEROL/IPRATROPIUM 3 ML NEB RESP TX SCH ×4 (00:28→19:29)
[2017-03-05 06:19] LABS: Basophils # 0.1 10*3/uL (0.0-0.2); Basophils % 0.8 % (0.0-0.8); Eosinophils # 0.5 10*3/uL (0.0-0.87); Eosinophils % 7.5 % (0.00-10.9); Hematocrit 32.9 VOL% (35.7-47.0); Hemoglobin 10.3 GM/DL (12.0-16.0); Immature Granulocytes % 0.3 %; Immature Granulocytes Absolute 0.02 #; Lymphocytes % 14.2 % (21.3-54.2); Mean Corpuscular HGB Conc 31.3 GM/DL (32-36); Mean Corpuscular Hemoglobin 28 PG (27-34); Mean Corpuscular Volume 89.2 FL (87-102); Mean Platelet Volume 13.5 FL (9.6-12.0); Monocytes # 0.5 10*3/uL (0.11-0.8); NRBC # 0.02 10*3/uL; Neutrophils % 70.2 % (38.7-73.9); Platelet Count 134 T/CUMM (130-400); Red Blood Count 3.69 MC/CUMM (3.8-5.5); Red Cell Distribution Width 17.4 % (9.3-17.3); White Blood Count 7.2 T/CUMM (4-12)
[2017-03-05 06:44] LABS: Calcium 9.8 MG/DL (8.5-10.1); Magnesium 2.7 MG/DL (1.8-2.4); Osmolality,Calculated 293.1 MOS/KG (273-304); Potassium 5.3 MMOL/L (3.5-5.1)
--- NOTE | 2017-03-05 08:25 | XRay Report ---
XR chest 1V portable Indication: Shortness of breath Comparison: Chest x-ray 03/04/2017 Technique: Portable AP chest was performed. Findings: Airspace disease mid to upper left lung is changed little since comparison study. Left-sided pleural effusion remains present with little interval change in size. Heart size remains normal. Cardiac pacemaker is stable. Chest is otherwise unchanged. Impression: 1. Left upper lobe airspace disease demonstrates little interval change. Follow-up is recommended to ensure resolution as underlying mass is not excluded. 2. Left-sided pleural effusion remains present. There may be minimal interval enlargement. 03/05/2017 8:21 AM PROCEDURE INTERPRETED AT [facility] DEPARTMENT OF RADIOLOGY Final Report Signed by: Dr. Sebas Barnett
[2017-03-05] MEDS: INSULIN REGULAR 100 UNIT/ML SUBCUT SCH ×2 (08:38→16:37)
[2017-03-05] MEDS: PANTOPRAZOLE 40 MG TABLET PO SCH (08:39)
[2017-03-05] MEDS: cloNIDine 0.1 MG TABLET PO SCH ×2 (08:39→21:27)
[2017-03-05] MEDS: ESCITALOPRAM 10 MG TABLET PO SCH (08:39)
[2017-03-05] MEDS: LORATADINE 10 MG TABLET PO SCH (08:39)
[2017-03-05] MEDS: FUROSEMIDE 40 MG TABLET PO SCH ×2 (08:39→16:37)
[2017-03-05] MEDS: SOTALOL 80 MG TABLET PO SCH ×2 (08:39→21:27)
[2017-03-05] MEDS: ATORVASTATIN 20 MG TABLET PO SCH (08:39)
[2017-03-05] MEDS: FERROUS SULFATE 325 MG TABLET PO SCH (08:39)
--- NOTE | 2017-03-05 08:55 | Pulmonology Progress Note ---
Pulmonary - PN: Subj Interval history: This 87-year-old female came in with congestive heart failure and apparently a left upper lobe pneumonia. She has consolidation behind her pacemaker shadow in the left upper lobe. She is feeling a little better today. She has no fever and her white count is normal. Exam (Progress Note) - Constitutional Vitals: Period Temp Pulse Resp BP Sys/Dickinson Pulse Ox Last 24 Hr 96.7 F-97.9 F 59-64 16-21 137-168/70-88 90-100 Exam: Patient's alert and cooperative. Vital signs are normal. Pupils react to light. Throat is clear. Neck supple no bruits. Chest shows a few rales over the left chest. Heart normal rate rhythm no murmurs. Abdomen soft no masses. Extremities no clubbing cyanosis edema. Results - Labs CBC & BMP: 03/05/17 06:03 03/05/17 06:03 Lab Results: I have reviewed the past 24 hour labs - Diagnostic Findings Procedure: Chest x-ray: image reviewed by me (Small left pleural effusion. Rounded opacity behind the pacemaker on chest x-ray.) Assessment and Plan (1) Pneumonia Status: Acute Assessment and plan: Patient is on empiric antibiotics for pneumonia. Currently has a consolidated appearing area in the left upper lobe. However she has no fever and has a normal white count. This will need to be followed up radiographically. Current Visit: Yes (2) Pleural effusion Status: Acute Assessment and plan: Small left pleural effusion. Probably too small to tap at present. Current Visit: Yes (3) Congestive heart failure Status: Acute Assessment and plan: Elevated BNP of around 2000, however patient has some renal insufficiency which may artificially relates that. I think there is an element of congestive heart failure as well Current Visit: Yes
--- NOTE | 2017-03-05 12:45 | Cardiology Progress Note ---
Cardiology - PN: Subj Interval history: Cardiology note 87-year-old woman with right mid lung pneumonia and CHF. Blood pressure 144/82 No temperature Little cough Regular rhythm with systolic murmur as before Decreased breath sounds few rhonchi in the bases Abdomen benign No leg edema Lab data today White count 7.2 hemoglobin 10.3 hematocrit 32.9 Sodium 142 potassium 5.3 chloride 110 CO2 23 BUN 38 creatinine 2.70 Glucose 183 Impression Left mid lung pneumonia Superimposed CHF Echo Doppler of December 06, 2016 showed ejection fraction 60% with grade 2 diastolic dysfunction and LVH with 3+ MR and severe TR, PA pressure 80 Diabetes Chronic anemia Chronic renal failure Chronic dyspnea Unsteady gait Status post Medtronic dual-chamber pacemaker march 04, 2010 for sick sinus syndrome and paroxysmal atrial fib, maintaining sinus rhythm on sotalol 80 mg twice daily Normal Lexiscan cardiac stress test March 05, 2010 EF 62% Plan IV antibiotics Nebs Lasix Add hydralazine 25 mg twice daily for afterload reduction BMP in a.m. Discussed with son. Exam (Progress Note) - Constitutional Vitals: Period Temp Pulse Resp BP Sys/Dickinson Pulse Ox Last 24 Hr 96.7 F-97.9 F 59-64 16-21 137-168/70-88 90-99 Result/EKG - Labs CBC & BMP: 03/05/17 06:03 03/05/17 06:03 Labs: Laboratory Results - last 24 hr 03/04/17 03/04/17 03/05/17 13:40 15:07 06:03 WBC 7.2 RBC 3.69 L Hgb 10.3 L Hct 32.9 L MCV 89.2 MCH 28 MCHC 31.3 L RDW 17.4 H Plt Count 134 MPV 13.5 H Neut % (Auto) 70.2 Lymph % (Auto) 14.2 L [place] % (Auto) 7.0 Eos % (Auto) 7.5 Baso % (Auto) 0.8 Neut # (Auto) 5.0 Lymph # (Auto) 1.0 L Jackson # (Auto) 0.5 Eos # (Auto) 0.5 Baso # (Auto) 0.1 Immature Gran % 0.3 Nucleated RBC % 0.3 Immature Gran # 0.02 Nucleated RBCs # 0.02 Sodium Potassium Chloride Carbon Dioxide Anion Gap BUN Creatinine GFR Calculation BUN/Creatinine Ratio Glucose POC Glucose 256 H Calculated Osmolality Calcium Magnesium Urine Color Yellow Urine Appearance Clear Urine pH 6.0 Ur Specific [place] 1.006 Urine Protein Negative Urine Glucose (UA) Negative Urine Ketones Negative Urine Blood Negative Urine Nitrate Negative Urine Bilirubin Negative Urine Urobilinogen < 2.0 H Urine Leukocytes Trace Urine RBC 2 Urine WBC 24 Ur Squamous Epith Cells Occasional Urine Bacteria Occasional Hyaline Casts 1 Ur Culture Indicated? Results to follow 03/05/17 03/05/17 03/05/17 06:03 07:20 11:25 WBC RBC Hgb Hct MCV MCH MCHC RDW Plt Count MPV Neut % (Auto) Lymph % (Auto) [place] % (Auto) Eos % (Auto) Baso % (Auto) Neut # (Auto) Lymph # (Auto) [place] # (Auto) Eos # (Auto) Baso # (Auto) Immature Gran % Nucleated RBC % Immature Gran # Nucleated RBCs # Sodium 142 Potassium 5.3 H Chloride 110 H Carbon Dioxide 23 Anion Gap 14.3 BUN 38 H Creatinine 2.70 H GFR Calculation 18 BUN/Creatinine Ratio 14.00 Glucose 139 H POC Glucose 183 H 268 H Calculated Osmolality 293.1 Calcium 9.8 Magnesium 2.7 H Urine Color Urine Appearance Urine pH Ur Specific [place] Urine Protein Urine Glucose (UA) Urine Ketones Urine Blood Urine Nitrate Urine Bilirubin Urine Urobilinogen Urine Leukocytes Urine RBC Urine WBC Ur Squamous Epith Cells Urine Bacteria Hyaline Casts Ur Culture Indicated?
[2017-03-05] MEDS: hydrALAZINE 25 MG TABLET PO SCH ×2 (12:57→21:27)
--- NOTE | 2017-03-05 15:06 | Hospitalist Progress Note ---
Assessment and Plan - Time spent with patient Time spent with patient: Greater than 30 minutes (1) Pneumonia Status: Acute Assessment and plan: Continue current management. Current Visit: Yes (2) Chronic kidney disease Status: Acute Assessment and plan: Stable. Current Visit: Yes (3) Congestive heart failure Status: Acute Assessment and plan: BNP is higher than previous levels. Clinically stable, euvolemic, no echo on record. Continue meds. Current Visit: Yes (4) Diabetes Status: Acute Assessment and plan: SSI and accuchecks. Hga1c is 7.9 which is decent control given her age. Continue current management. Current Visit: Yes (5) Hypertension Status: Acute Assessment and plan: Continue current management. Current Visit: Yes Hospitalist: Subjective Interval history: Patient feels better this morning. Son is present at bedside. No overnight events. Exam - Constitutional Vitals: Period Temp Pulse Resp BP Sys/Dickinson Pulse Ox Last 24 Hr 96.7 F-97.9 F 59-63 16-21 137-168/70-88 90-100 General appearance: no acute distress - Head Head exam: Present: normocephalic, atraumatic - Eye Eye exam: Present: EOMI Pupils: Present: SVITLANA - ENT ENT exam: Present: normal exam - Neck Neck exam: Present: normal inspection - Respiratory Respiratory exam: Present: clear to auscultation bilaterally. Absent: rhonchi, wheezes - Cardiovascular Cardiovascular exam: Present: regular rate and rhythm. Absent: gallop, rubs, systolic murmur - GI/Abdominal GI/Abdominal exam: Present: normal bowel sounds, soft. Absent: distended, firm , guarding, tenderness, rebound - Extremities Exam Extremities exam: Present: normal inspection. Absent: calf tenderness, edema Results - Labs CBC & BMP: 03/05/17 06:03 03/05/17 06:03 Lab Results: I have reviewed the past 24 hour labs
[2017-03-05] MEDS: cefTRIAXone 1,000 MG in SODIUM CHLORIDE 0.9% 100 ML IV SCH (21:15)
[2017-03-05] MEDS: ENOXAPARIN 30 MG/0.3 ML SYRINGE SUBCUT SCH (21:27)
[2017-03-06] MEDS: ALBUTEROL/IPRATROPIUM 3 ML NEB RESP TX SCH ×2 (01:41→07:25)
[2017-03-06 06:20] LABS: Basophils # 0.1 10*3/uL (0.0-0.2); Basophils % 0.9 % (0.0-0.8); Eosinophils # 0.7 10*3/uL (0.0-0.87); Eosinophils % 9.5 % (0.00-10.9); Hematocrit 31.2 VOL% (35.7-47.0); Hemoglobin 9.4 GM/DL (12.0-16.0); Immature Granulocytes % 0.1 %; Immature Granulocytes Absolute 0.01 #; Lymphocytes # 1.2 10*3/uL (1.4-4.0); Lymphocytes % 16.5 % (21.3-54.2); Mean Corpuscular HGB Conc 30.1 GM/DL (32-36); Mean Corpuscular Hemoglobin 28 PG (27-34); Mean Corpuscular Volume 91.5 FL (87-102); Mean Platelet Volume 13.3 FL (9.6-12.0); Monocytes # 0.6 10*3/uL (0.11-0.8); Monocytes % 8.8 % (1.7-12.7); Neutrophils # 4.5 10*3/uL (1.4-7.4); Neutrophils % 64.2 % (38.7-73.9); Platelet Count 124 T/CUMM (130-400); Red Blood Count 3.41 MC/CUMM (3.8-5.5); Red Cell Distribution Width 17.5 % (9.3-17.3)
[2017-03-06 06:49] LABS: Calcium 9.3 MG/DL (8.5-10.1); Magnesium 2.4 MG/DL (1.8-2.4); Osmolality,Calculated 295.1 MOS/KG (273-304)
[2017-03-06] MEDS: PANTOPRAZOLE 40 MG TABLET PO SCH (08:40)
[2017-03-06] MEDS: ESCITALOPRAM 10 MG TABLET PO SCH (08:40)
[2017-03-06] MEDS: SOTALOL 80 MG TABLET PO SCH (08:40)
[2017-03-06] MEDS: hydrALAZINE 25 MG TABLET PO SCH (08:40)
[2017-03-06] MEDS: ATORVASTATIN 20 MG TABLET PO SCH (08:40)
[2017-03-06] MEDS: FUROSEMIDE 40 MG TABLET PO SCH (08:40)
[2017-03-06] MEDS: LORATADINE 10 MG TABLET PO SCH (08:40)
[2017-03-06] MEDS: cloNIDine 0.1 MG TABLET PO SCH (08:40)
[2017-03-06] MEDS: FERROUS SULFATE 325 MG TABLET PO SCH (08:40)
[2017-03-06] MEDS: INSULIN REGULAR 100 UNIT/ML SUBCUT SCH (08:41)
--- NOTE | 2017-03-06 10:01 | Pulmonology Progress Note ---
Pulmonary - PN: Subj Interval history: This 87-year-old female came in with congestive heart failure and apparently a left upper lobe pneumonia. She has consolidation behind her pacemaker shadow in the left upper lobe. She is feeling a little better today. She has no fever and her white count is normal. 03/06/2017 no new complaints. She is less short of breath. Exam (Progress Note) - Constitutional Vitals: Period Temp Pulse Resp BP Sys/Dickinson Pulse Ox Last 24 Hr 96.8 F-97.6 F 54-76 18-20 137-175/75-82 97-100 Exam: Patient's alert and cooperative. Vital signs are normal. Pupils react to light. Throat is clear. Neck supple no bruits. Chest shows a few rales over the left chest. Heart normal rate rhythm no murmurs. Abdomen soft no masses. Extremities no clubbing cyanosis edema. Little change from yesterday. Results - Labs CBC & BMP: 03/06/17 05:31 03/06/17 05:31 Lab Results: I have reviewed the past 24 hour labs Assessment and Plan (1) Pneumonia Status: Acute Assessment and plan: Patient is on empiric antibiotics for pneumonia. Currently has a consolidated appearing area in the left upper lobe. However she has no fever and has a normal white count. This will need to be followed up radiographically. 03/06/2017 clinically improved. Recheck x-ray tomorrow. Current Visit: Yes (2) Pleural effusion Status: Acute Assessment and plan: Small left pleural effusion. Probably too small to tap at present. Current Visit: Yes (3) Congestive heart failure Status: Acute Assessment and plan: Elevated BNP of around 2000, however patient has some renal insufficiency which may artificially relates that. I think there is an element of congestive heart failure as well 03/06/2017 seems to be better with diuresis. Current Visit: Yes
--- NOTE | 2017-03-06 10:19 | Discharge Summary ---
Hospital Course - Hospital Course Hospital Course: Ms Monge presented with shortness of breath, and was found to have left sided pneumonia. She was initiated on IV antibiotics, and serial cxrays revealed an improving infiltrate. Pulmonary was consulted and followed the patient while hospitalized. Patient will require a follow up CT of her chest to confirm resolution of the infiltrate and exclude any underlying mass. This will be performed as an outpatient during follow up with her Cytology Supervisor Dr Chapman. By discharge, she had met maximum benefit of hospitalization. - Time spent with patient Time with patient DS: Greater than 30 minutes Diagnosis - Discharge Diagnosis (1) Pneumonia Status: Acute (2) Chronic kidney disease Status: Acute (3) Congestive heart failure Status: Acute (4) Diabetes Status: Acute (5) Hypertension Status: Acute Discharge Plan - Discharge Data Disposition: Disch To Home/Self Care Condition at Discharge: Stable Discharge Diet: advance to your usual diet Activity: resume usual activities as tolerated - Discharge Medications New Levofloxacin Tab [Levaquin Tab] 500 mg PO DAILY #5 tablet hydrALAZINE TAB [Apresoline Tab] 25 mg PO BID #60 tablet Continue Loratadine Tab [Claritin Tab] 10 mg PO DAILY Ferrous Sulfate 325 mg PO DAILY Furosemide Tab [Lasix Tab] 40 mg PO BID DIURETIC Omeprazole 40 mg PO DAILY Escitalopram Oxalate 10 mg PO DAILY Atorvastatin Calcium 20 mg PO DAILY cloNIDine HCl [Clonidine HCl] 0.1 mg PO BID Sotalol HCl [Sotalol] 80 mg PO BID - Follow Up or Referral Follow Up: Sylvain Chapman MD [Physician] - 2 Weeks - Forms/Instructions Exam - Constitutional Vitals: Period Temp Pulse Resp BP Sys/Dickinson Pulse Ox Last 24 Hr 96.8 F-97.6 F 54-76 18-20 137-175/75-82 97-100 General appearance: normal weight, no acute distress - Head Head exam: Present: normal inspection, normocephalic, atraumatic - Eye Eye exam: Present: EOMI Pupils: Present: SVITLANA - ENT ENT exam: Present: normal exam - Neck Neck exam: Present: normal inspection - Respiratory Respiratory exam: Present: clear to auscultation bilaterally. Absent: accessory muscle use, prolonged expiratory phase, wheezes - Cardiovascular Cardiovascular exam: Present: regular rate and rhythm. Absent: bradycardia, irregular rhythm, systolic murmur - GI/Abdominal GI/Abdominal exam: Present: normal bowel sounds. Absent: ascites, hypoactive bowel sounds, tenderness - Extremities Exam Extremities exam: Present: normal inspection Discharge Results Procedures and tests throughout hospitalization: Pending Orders 03/03/17 15:34 Sputum Culture and Gram Stain Stat 03/03/17 15:49 Legionella Pneumophilia Ab Routine 03/03/17 17:40 Sputum Culture and Gram Stain Routine 03/05/17 Urine Culture Routine 03/07/17 04:00 XR chest 1V portable IN AM BMP w/ Mg [Basic Metabolic Panel w/Mg] IN AM CBC [Comp Blood Count Auto Diff] IN AM Labs on day of discharge: Labs from last 24 hours 03/06/17 03/06/17 03/06/17 07:33 05:31 05:31 WBC 7.0 RBC 3.41 L Hgb 9.4 L Hct 31.2 L MCV 91.5 MCH 28 MCHC 30.1 L RDW 17.5 H Plt Count 124 L MPV 13.3 H Neut % (Auto) 64.2 Lymph % (Auto) 16.5 L [place] % (Auto) 8.8 Eos % (Auto) 9.5 Baso % (Auto) 0.9 H Neut # (Auto) 4.5 Lymph # (Auto) 1.2 L [place] # (Auto) 0.6 Eos # (Auto) 0.7 Baso # (Auto) 0.1 Immature Gran % 0.1 Nucleated RBC % 0.0 Immature Gran # 0.01 Nucleated RBCs # 0.00 Sodium 142 Potassium 5.0 Chloride 111 H Carbon Dioxide 24 Anion Gap 12.0 BUN 39 H Creatinine 2.70 H GFR Calculation 18 BUN/Creatinine Ratio 14.00 Glucose 164 H POC Glucose 126 H Calculated Osmolality 295.1 Calcium 9.3 Magnesium 2.4 03/05/17 03/05/17 03/05/17 15:42 15:30 11:25 WBC RBC Hgb Hct MCV MCH MCHC RDW Plt Count MPV Neut % (Auto) Lymph % (Auto) [place] % (Auto) Eos % (Auto) Baso % (Auto) Neut # (Auto) Lymph # (Auto) [place] # (Auto) Eos # (Auto) Baso # (Auto) Immature Gran % Nucleated RBC % Immature Gran # Nucleated RBCs # Sodium Potassium Chloride Carbon Dioxide Anion Gap BUN Creatinine GFR Calculation BUN/Creatinine Ratio Glucose POC Glucose 229 H 303 H 268 H Calculated Osmolality Calcium Magnesium Preliminary micro results at discharge 03/05/17 Unknown Urine Culture - Preliminary Urine,Voided No Growth at 24 hours. DS: Provider Date of admission: 03/03/17 14:41 Primary care physician: . No PCP Attending physician on admission: Marcia Hernandez MD Consults: 03/03/17 15:30 Consult to Physician [CONS] Routine Comment: pneum,pleural eff, questionable lung mass Consulting Provider: Sylvain Chapman 03/03/17 17:53 Consult to Physician [CONS] Routine Comment: known to you, elevated BNP; Hx of PHT Consulting Provider: Kamaljit Noel Discharging clinician: Marcia Hernandez MD Expected date of discharge: 03/06/17
--- NOTE | 2017-03-06 12:42 | Cardiology Progress Note ---
Cardiology - PN: Subj Interval history: Cardiology note Fatigue, but no complaints No temperature No cough Blood pressure a little high Regular rhythm with systolic murmur as before Decreased breath sounds with basilar rhonchi Abdomen benign Lab data today Hemoglobin 9.4 hematocrit 31.2 white count 7.0 Sodium 142 potassium 5.0 chloride 111 CO2 24 BUN 39 creatinine 2.70 Glucose 164 magnesium 2.4 Impression Left mid lung pneumonia Superimposed CHF Echo Doppler December 06, 2016 ejection fraction 60% with grade 2 diastolic dysfunction, LVH and 3+ MR and severe TR, PA pressure 80 Diabetes Chronic renal failure moderate Chronic dyspnea Unsteady gait Status post Medtronic dual-chamber pacemaker March 04, 2010 for sick sinus syndrome and paroxysmal atrial fib, maintaining sinus rhythm on sotalol 80 mg twice daily Normal Lexiscan cardiac stress test March 05, 2010 EF 62% Plan Antibiotics and nebs Increase hydralazine 25 mg 3 times daily Encourage nutrition Exam (Progress Note) - Constitutional Vitals: Period Temp Pulse Resp BP Sys/Dickinson Pulse Ox Last 24 Hr 97.0 F-97.6 F 54-76 18-20 141-175/75-82 97-100 Result/EKG - Labs CBC & BMP: 03/06/17 05:31 03/06/17 05:31 Labs: Laboratory Results - last 24 hr 03/05/17 03/05/17 03/06/17 15:30 15:42 05:31 WBC 7.0 RBC 3.41 L Hgb 9.4 L Hct 31.2 L MCV 91.5 MCH 28 MCHC 30.1 L RDW 17.5 H Plt Count 124 L MPV 13.3 H Neut % (Auto) 64.2 Lymph % (Auto) 16.5 L [place] % (Auto) 8.8 Eos % (Auto) 9.5 Baso % (Auto) 0.9 H Neut # (Auto) 4.5 Lymph # (Auto) 1.2 L [place] # (Auto) 0.6 Eos # (Auto) 0.7 Baso # (Auto) 0.1 Immature Gran % 0.1 Nucleated RBC % 0.0 Immature Gran # 0.01 Nucleated RBCs # 0.00 Sodium Potassium Chloride Carbon Dioxide Anion Gap BUN Creatinine GFR Calculation BUN/Creatinine Ratio Glucose POC Glucose 303 H 229 H Calculated Osmolality Calcium Magnesium 03/06/17 03/06/17 03/06/17 05:31 07:33 11:06 WBC RBC Hgb Hct MCV MCH MCHC RDW Plt Count MPV Neut % (Auto) Lymph % (Auto) [place] % (Auto) Eos % (Auto) Baso % (Auto) Neut # (Auto) Lymph # (Auto) [place] # (Auto) Eos # (Auto) Baso # (Auto) Immature Gran % Nucleated RBC % Immature Gran # Nucleated RBCs # Sodium 142 Potassium 5.0 Chloride 111 H Carbon Dioxide 24 Anion Gap 12.0 BUN 39 H Creatinine 2.70 H GFR Calculation 18 BUN/Creatinine Ratio 14.00 Glucose 164 H POC Glucose 126 H 124 H Calculated Osmolality 295.1 Calcium 9.3 Magnesium 2.4 Specialty Discharge - Follow Up or Referrals Follow up with: Sylvain Chapman MD [Physician] - 2 Weeks
[2017-03-06 12:56] VITALS: BP 139/65
== END 2017-03-06 13:28 | disposition home health service (06) | DRG 291 ==
LOC: N.ED 11:50 → N.EDINP 14:41 → N.2E 15:42
PROVIDERS: ADMIT Internal Medicine; ATTEND Internal Medicine